=== PATIENT | female | born 1975 | race American Indian/Alaskan Native ===

== ENCOUNTER 2020-07-06 23:59 | Emergency (ER) | payer OTHER ==
[2020-07-07] MEDS ORDERED: IBUPROFEN 800 MG TAB PO ONE (00:16)
--- NOTE | 2020-07-07 01:54 | Emergency Department Report ---
ED Head Trauma HPI - General Chief complaint: Fall Stated complaint: FALL;HEADACHE Time Seen by Provider: 07/07/20 00:10 Source: patient, EMS Mode of arrival: Stretcher Limitations: No Limitations - History of Present Illness Initial comments: Chief complaint: Headache head trauma loss of consciousness tailbone pain HPI: This is a 45-year-old female with history of hypertension and migraine headache who had a ground-level fall after slipping on wet floor. She recalls the floor being wet while washing dishes. She struck her head on the kitchen counter. She awakened on the floor. She may have a loss of consciousness. She has posterior head pain. She also has pain in her tailbone. Family member witnessed her to be dazed but awake. She was transferred to the emergency department by EMS. She has mild to moderate posterior head pain. She denies neck pain. She denies back pain. She does have mild pain in her tailbone. Patient does recall the fall. MD Complaint: head injury, head pain, fall -: Sudden, This evening Mechanism of Injury: mechanical fall Location: occipital Loss of Consciousness: unsure Previous Trauma to this Area: No Place: home Severity: moderate Consistency: constant Other Injuries: other (Tailbone pain) Associated Symptoms: denies other symptoms - Related Data Allergies/Adverse reactions: Allergies Allergy/AdvReac Type Severity Reaction Status Date / Time Penicillins Allergy Intermediate Rash Verified 07/07/20 00:18 ED Review of Systems ROS: Stated complaint: FALL;HEADACHE Other details as noted in HPI Comment: All other systems reviewed and negative Constitutional: denies: fever Respiratory: denies: cough, shortness of breath Cardiovascular: denies: chest pain Gastrointestinal: denies: abdominal pain, nausea, vomiting Musculoskeletal: back pain Neurological: headache ED Past Medical Hx - Past Medical History Previous Medical History?: Yes Hx Hypertension: Yes Additional medical history: migraines - Surgical History Additional Surgical History: Right ring and little finger surgery - Social History Smoking Status: Never Smoker Substance Use Type: None ED Physical Exam - General Limitations: No Limitations General appearance: alert, in no apparent distress - Head Head exam: Present: atraumatic, normocephalic - Eye Eye exam: Present: normal appearance - ENT ENT exam: Present: mucous membranes moist - Neck Neck exam: Present: normal inspection, full ROM. Absent: tenderness, meningismus - Respiratory Respiratory exam: Present: normal lung sounds bilaterally. Absent: respiratory distress, wheezes, rales, rhonchi - Cardiovascular Cardiovascular Exam: Present: regular rate, normal rhythm, normal heart sounds. Absent: systolic murmur, diastolic murmur, rubs, gallop - GI/Abdominal GI/Abdominal exam: Present: soft, normal bowel sounds. Absent: distended, tenderness, guarding, rebound - Extremities Exam Extremities exam: Present: normal inspection - Back Exam Back exam: Present: normal inspection, full ROM. Absent: tenderness, CVA tenderness (R), CVA tenderness (L), muscle spasm, paraspinal tenderness, vertebral tenderness, rash noted - Neurological Exam Neurological exam: Present: alert, oriented X3 - Psychiatric Psychiatric exam: Present: normal affect, normal mood - Skin Skin exam: Present: warm, dry, intact, normal color. Absent: rash ED Course Vital Signs 07/07/20 07/07/20 07/07/20 00:06 00:13 01:40 Temperature 98.2 F Pulse Rate 83 73 Respiratory 20 18 18 Rate Blood Pressure 145/86 Blood Pressure 123/83 [Left] O2 Sat by Pulse 100 98 Oximetry - Radiology Data Radiology results: report reviewed Findings Reporting MD: Marco Moran Dictation Time: July 07, 2020 00:56 Police Cadet: Not available Assistant Mechanic Date: CT head/brain wo con INDICATION: headache loc. TECHNIQUE: All CT scans at this location are performed using CT dose reduction for ALARA by means of automated exposure control. COMPARISON: None available. FINDINGS: Imaged paranasal sinuses are clear. Left mastoids are clear, but there is diffuse sclerosis of the right mastoid sinuses. Ventricles are symmetrical and normal in size. No mass, hemorrhage or other acute abnormality. IMPRESSION: 1. No acute abnormalities. - Medical Decision Making 1. Headache after trauma, possible LOC, CT head indicated due to mechanism loss of consciousness. CT head ruled out intracranial hemorrhage and skull fracture. Patient given concussion precautions. Recommended ibuprofen as needed for headache. 2. Tailbone pain: No tenderness upon palpation. Low suspicion for fracture. Patient given education and supportive care instructions. Critical care attestation.: If time is entered above; I have spent that time in minutes in the direct care of this critically ill patient, excluding procedure time. ED Disposition Clinical Impression: Head injury, Concussion, Coccygeal contusion Disposition: DC-01 TO HOME OR SELFCARE Is pt being admited?: No Does the pt Need Aspirin: No Instructions: Concussion, Adult Forms: Work/School Release Form(ED)
--- NOTE | 2020-07-07 02:01 | Cat Scan Report ---
CT head/brain wo con INDICATION: headache loc. TECHNIQUE: All CT scans at this location are performed using CT dose reduction for ALARA by means of automated e xposure control. COMPARISON: None available. FINDINGS: Imaged paranasal sinuses are clear. Left mastoids are clear, but there is diffuse sclerosis of the ri ght mastoid sinuses. Ventricles are symmetrical and normal in size. No mass, hemorrhage or other acute abnormality. IMPRESSION: 1. No acute abnormalities. Signer Name: Marco Moran MD Signed: 07/07/2020 1:56 AM Workstation Name: [id number]
[2020-07-07 02:42] VITALS: BP 136/87
== END 2020-07-07 02:41 | disposition home or self-care (01) ==
LOC: ED 23:59
DX: S06.0X9A Concussion with loss of consciousness of unspecified duration, initial encounter (principal); S30.0XXA Contusion of lower back and pelvis, initial encounter; I10 Essential (primary) hypertension; Z88.0 Allergy status to penicillin; W18.30XA Fall on same level, unspecified, initial encounter; Y93.89 Activity, other specified; Y92.89 Other specified places as the place of occurrence of the external cause; Y99.8 Other external cause status
CPT/HCPCS: 70450

== ENCOUNTER 2021-07-25 16:37 | Emergency (ER) | payer OTHER ==
--- NOTE | 2021-07-25 23:15 | Emergency Department Report ---
ED Upper Extremity Inj HPI - General Chief Complaint: Extremity Injury, Upper Stated Complaint: HAND INJURY Time Seen by Provider: 07/25/21 22:45 Source: patient Mode of arrival: Ambulatory Limitations: No Limitations - History of Present Illness Initial Comments: 46-year-old female was playing a chasing game last night with friends and lost her footing falling down a fence fell on top of her hand in a crushing fashion resulting in pain and swelling to the left hand region. No numbness or tingling MD Complaint: Injury to:: left -: Sudden Other Extremity Injury: Hand: Left Other Injuries: none Handedness: right Place: home Improves With: none Worsens With: movement of extremity Context: fall, direct blow, crush - Related Data Previous Rx's Medication Instructions Recorded Last Taken Type Acetaminophen/Codeine [Tylenol 1 tab PO Q6H PRN #10 tab 07/26/21 Unknown Rx /Codeine # 3 tab] Allergies Allergy/AdvReac Type Severity Reaction Status Date / Time Penicillins Allergy Intermediate Rash Verified 07/07/20 00:18 ED Review of Systems ROS: Stated complaint: HAND INJURY Other details as noted in HPI ED Past Medical Hx - Past Medical History Hx Hypertension: Yes Additional medical history: migraines - Surgical History Additional Surgical History: Right ring and little finger surgery - Social History Smoking Status: Never Smoker Substance Use Type: None - Medications Home Medications: Home Medications Medication Instructions Recorded Confirmed Last Taken Type Acetaminophen/Codeine [Tylenol 1 tab PO Q6H PRN #10 tab 07/26/21 Unknown Rx /Codeine # 3 tab] ED Physical Exam - General Limitations: No Limitations ED Course Vital Signs 07/25/21 18:04 Temperature 98.4 F Pulse Rate 49 L Respiratory 20 Rate Blood Pressure 160/99 [Right] O2 Sat by Pulse 100 Oximetry - Orthopedic Splinting/Casting Injury #1 Side: left Upper Extremity Injury Location: hand Upper Extremity Immobilizer: volar spint ED Medical Decision Making - Radiology Data Radiology results: report reviewed [facility] [address] [place] [address] XRay Report Signed Patient: ZABRINA CAMARENA MR#: [id number] : 1975 Acct:[id number] Age/Sex: 46 / F ADM Date: 07/25/21 Loc: ED Attending Dr: Ordering Physician: LILLIE HOWARD Date of Service: 07/25/21 Procedure(s): XR hand 3+V LT Accession Number(s): [id number] cc: LILLIE HOWARD Fluoro Time In Minutes: LEFT HAND 3 VIEW(S) INDICATION / CLINICAL INFORMATION: crush injury COMPARISON: None available. FINDINGS: BONES / JOINT(S): Minimally comminuted fracture of the distal ring finger metacarpal is present with palmar angulation of the metacarpal head and minimal widening of the MCP joint likely in part projectional. No significant arthritis. SOFT TISSUES: Moderate soft tissue swelling along the extensor surface of the hand. ADDITIONAL FINDINGS: None. IMPRESSION: 1. Fracture involving the distal ring finger metacarpal with palmar angulation of the metacarpal head and moderate contusion along the extensor surface of the left hand. Signer Name: Evangelista Cr II, MD Signed: 07/25/2021 11:11 PM Workstation Name: [id number] Transcribed By: PANCHITO Dictated By: EVANGELISTA CR II, MD Electronically Authenticated By: EVANGELISTA CR II, MD Signed Date/Time: 07/25/212310 DD/ 09 TD/TT: - Medical Decision Making 38-year-old Haitian female [facility] emerged department status post mechanical fall onto left hand resulting in a metacarpal fracture. She was placed in a /volar splint with plans for follow-up with orthopedics she is neurovascularly intact and right-handed. Critical care attestation.: If time is entered above; I have spent that time in minutes in the direct care of this critically ill patient, excluding procedure time. ED Disposition Clinical Impression: Closed fracture of 4th metacarpal Disposition: 01 HOME / SELF CARE / HOMELESS Is pt being admited?: No Does the pt Need Aspirin: No Condition: Stable Instructions: Cast or Splint Care, Adult, [id number], Metacarpal Fracture Prescriptions: Acetaminophen/Codeine [Tylenol /Codeine # 3 tab] 1 tab PO Q6H PRN #10 tab PRN Reason: hand pain Referrals: POLO LOMBARDO MD [Primary Care Provider] - 3-5 Days
[2021-07-26 01:10] VITALS: BP 156/94
== END 2021-07-26 01:10 | disposition home or self-care (01) ==
LOC: ED 16:37
DX: S62.305A Unspecified fracture of fourth metacarpal bone, left hand, initial encounter for closed fracture (principal); X58.XXXA Exposure to other specified factors, initial encounter; Y93.89 Activity, other specified; Y92.89 Other specified places as the place of occurrence of the external cause; Y99.8 Other external cause status; Z88.0 Allergy status to penicillin
CPT/HCPCS: 99283

== ENCOUNTER 2021-08-17 15:28 | Outpatient (CLI) | payer OTHER ==
--- NOTE | 2021-08-17 16:14 | XRay Report ---
LEFT HAND 2 VIEWS INDICATION: M25.532 pain in left wrist. COMPARISON: 07/25/2021. IMPRESSION: A splint has been applied. A mildly comminuted fractures at the fourth metacarpal neck is unchanged in position and alignment since 07/25/2021. No significant calcified callus is detected. The remaining bony structures are intact. No joint pathology. Signer Name: Dawson Landry Jr, MD Signed: 08/17/2021 4:09 PM Workstation Name: [id number]
== END 2021-08-17 15:29 | disposition home or self-care (01) ==
LOC: XRAY 15:28
PROVIDERS: ATTEND Orthopaedic Surgery
DX: S62.335A Displaced fracture of neck of fourth metacarpal bone, left hand, initial encounter for closed fracture (principal); X58.XXXA Exposure to other specified factors, initial encounter; Y93.89 Activity, other specified; Y92.89 Other specified places as the place of occurrence of the external cause; Y99.8 Other external cause status

== ENCOUNTER 2021-08-31 16:50 | Outpatient (CLI) | payer OTHER ==
--- NOTE | 2021-09-01 07:23 | XRay Report ---
LEFT HAND 2 VIEWS 1741 INDICATION: M25.532 pain in left wrist COMPARISON: 08/17/2021 FINDINGS: Complex fracture of the distal fourth metacarpal is again seen with mild callus formation n oted. No change in positioning is obvious. No other changes are seen. Signer Name: Domingo Estrada MD Signed: 09/01/2021 7:19 AM Workstation Name: [id number]
== END 2021-08-31 16:51 | disposition home or self-care (01) ==
LOC: XRAY 16:50
PROVIDERS: ATTEND Orthopaedic Surgery
DX: S62.395A Other fracture of fourth metacarpal bone, left hand, initial encounter for closed fracture (principal); M25.741 Osteophyte, right hand; X58.XXXA Exposure to other specified factors, initial encounter; Y93.89 Activity, other specified; Y92.89 Other specified places as the place of occurrence of the external cause; Y99.8 Other external cause status

== ENCOUNTER 2021-10-10 15:12 | Emergency (ER) | payer OTHER ==
[2021-10-10 15:33] VITALS: BP 139/81
--- NOTE | 2021-10-10 16:15 | XRay Report ---
RIGHT HAND, 3 VIEWS INDICATION / CLINICAL INFORMATION: right hand and right index finger deformity. COMPARISON: None available. FINDINGS: There is a mildly displaced oblique fracture involving the proximal phalanx of the ring finger. Fract ure does not appear to extend intra-articularly but does extend throughout the diaphysis of the proxi mal phalanx. No additional fractures are noted within the hand. IMPRESSION: Mildly displaced nonintra-articular oblique fracture throughout the proximal phalanx of t he ring finger. Signer Name: Aleida Cobb MD Signed: 10/10/2021 4:11 PM Workstation Name: [id number]
[2021-10-10] MEDS ORDERED: KETOROLAC 10 MG TAB PO ONE (18:08)
[2021-10-10] MEDS ORDERED: oxyCODONE /ACETAMINOPHEN 5-325MG TAB PO ONE (18:08)
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
== END 2021-10-10 19:14 | disposition home or self-care (01) ==
LOC: ED 15:12
DX: S62.604A Fracture of unspecified phalanx of right ring finger, initial encounter for closed fracture (principal); I10 Essential (primary) hypertension; Z88.0 Allergy status to penicillin; X58.XXXA Exposure to other specified factors, initial encounter; Y93.89 Activity, other specified; Y92.89 Other specified places as the place of occurrence of the external cause; Y99.8 Other external cause status
CPT/HCPCS: 99283

== ENCOUNTER 2021-11-19 09:02 | Day surgery (SDC) | payer OTHER ==
[~2021-11-19 09:02] MED LIST: ceFAZolin/STERILE WATER 2 GM/20 ML SYRINGE IV SCH
[2021-11-19] MEDS ORDERED: KETAMINE/STERILE WATER 50 MG/ML SYRINGE ONE (09:16)
[2021-11-19] MEDS ORDERED: LIDOCAINE MPF (2%) 20 MG/1 ML VIAL 5 ML ONE (09:16)
[2021-11-19] MEDS ORDERED: propofoL 200 MG/20 ML VIAL IV ONE ×2 (09:16→09:29)
[2021-11-19] MEDS ORDERED: LACTATED RINGERS 1,000 ML ONE (09:20)
--- NOTE | 2021-11-19 09:24 | Anesthesia Day of Surgery ---
Anesthesia Day of Surgery - Day of Surgery Patient Examined: Yes Patient H&P Reviewed: Yes Patient is NPO: Yes
--- NOTE | 2021-11-19 09:24 | Anesthesia Consultation ---
Anesthesia Consult and Med Hx Date of service: 11/19/21 - Airway Anesthetic Teeth Evaluation: Good, Chipped ROM Head & Neck: Adequate Mental/Hyoid Distance: Adequate Mallampati Class: Class I Intubation Access Assessment: Probably Good - Pulmonary Exam CTA: Yes - Cardiac Exam Cardiac Exam: RRR - Pre-Operative Health Status ASA Pre-Surgery Classification: ASA1 Proposed Anesthetic Plan: General - Pulmonary Hx Smoking: No Hx Respiratory Symptoms: No Hx Sleep Apnea: (SUSANA PRE SCREEN NEGATIVE) - Cardiovascular System Hx Hypertension: Yes (OCC. NO MEDS PCP-WATCHING) Hx Cardia Arrhythmia: No - Central Nervous System Hx Neuromuscular Disorder: Yes (R ring finger fracture) Hx Psychiatric Problems: No - Gastrointestinal Hx Gastroesophageal Reflux Disease: No - Endocrine Hx Renal Disease: No Hx Liver Disease: No Hx Thyroid Disease: No - Hematic Hx Anemia: Yes - Other Systems Hx Alcohol Use: Yes (OCC.) Hx Substance Use: Yes (MARIJUANA) Hx Cancer: No - Additional Comments Anesthesia Medical History Comments: No GAC. No FHAC.
[2021-11-19] MEDS ORDERED: LACTATED RINGERS 1,000 ML IV SCH (09:25)
[2021-11-19] MEDS ORDERED: dexAMETHasone 20 MG/5 ML VIAL ONE (09:28)
[2021-11-19] MEDS ORDERED: ONDANSETRON 4 MG/2 ML INJ ONE (09:28)
[2021-11-19] MEDS ORDERED: HYDROmorphone 0.5 MG/0.5 ML INJ ONE ×2 (09:29→12:11)
[2021-11-19] MEDS ORDERED: MIDAZOLAM 2 MG/2 ML INJ ONE (09:46)
[2021-11-19] MEDS ORDERED: FAMOTIDINE 20 MG/2 ML INJ IV ONE (09:46)
[2021-11-19] MEDS ORDERED: VANCOMYCIN/NS 1 GM/250 ML 1 GM/250 ML BAG IV NR (10:00)
[2021-11-19] MEDS ORDERED: HYDROmorphone 1 MG/1 ML INJ ONE (10:20)
[2021-11-19] MEDS ORDERED: SODIUM CHLORIDE 0.9% IRR 1,500 ML BOTTLE IR ONE (10:40)
[2021-11-19] MEDS ORDERED: fentaNYL 100 MCG/2 ML INJ ONE (10:50)
--- NOTE | 2021-11-19 12:09 | XRay Report ---
Right fingers fluoroscopy INDICATION: Right fourth finger fracture IMPRESSION: Satisfactory ORIF of the fourth finger fracture. Fluoroscopy time: 0.1 minutes. Fluoroscopic images: 2. Signer Name: Wiley Adamson MD Signed: 11/19/2021 12:05 PM Workstation Name: [id number]
[2021-11-19] MEDS ORDERED: ONDANSETRON 4 MG/2 ML INJ IV PRN (12:13)
[2021-11-19] MEDS: HYDROmorphone 0.5 MG/0.5 ML INJ IV PRN ×2 (12:34→12:48)
[2021-11-19] MEDS ORDERED: HYDROcodone/ACETAMINOPHEN 5-325 MG TAB PO PRN (13:00)
[2021-11-19 13:20] VITALS: BP 138/86
--- NOTE | 2021-11-19 16:51 | Procedure Note ---
Date of procedure: 11/19/21 Pre-op diagnosis: 6-wk old right proximal phalanx fracture 4th finger Post-op diagnosis: same Procedure: Open reduction internal fixation right fourth finger proximal phalanx Procedure Patient was brought to the OR placed in the OR table in supine position following induction intubation anesthesia the patient's right upper extremity was prepped and draped in usual sterile manner a timeout procedure was done to identify the patient and the correct operative site. Next the arm was exsanguinated followed by inflation of the pneumatic tourniquet to 250 mmHg a bayonet type incision was made over the dorsal surface of the fourth finger is taken down sharply through skin and subcu the extensor tendon was seen identified and using a longitudinal incision this tendon was split self- retaining retractors placed deep within the wound patient was noted to have callus formation around the fracture site using combination of #15 blade curette and Jurors the fracture site was debrided of early callus formation next the fracture fragments were reduced into a more anatomic position and was held via bone clamps next to temporary K wire fixation fixation were applied along the shaft this was then followed by placement of our 1.7 T-shaped locked plate to t he dorsal surface of the proximal phalanx the plate was secured with screws of various lengths AP and lateral x-rays were obtained showing good anatomic reduction at the fracture site and placement of the screws on examination patient was noted to have a slight rotation distally however patient I was able to flex and extend the finger well following this the wound was then copiously irrigated and the skin incision was closed in a standard routine fashion postop dressings were applied as well as a ulnar gutter type splint patient tolerated procedure there were no complications she was sent to postanesthesia recovery in a stable condition Anesthesia: GETA Surgeon: MANUEL CARLISLE (Bhavik Cheung, 1st assist) Estimated blood loss: minimal Pathology: none Condition: stable Disposition: PACU
--- NOTE | 2021-11-19 18:50 | Post Anesthesia Evaluation ---
- Post Anesthesia Evaluation Patient Participated: Yes Airway Patent: Yes Stable Respiratory Function: Yes Nausea/Vomiting: No Temp > 96.8F: Yes Pain Manageable: Yes Adequeate Hydration: Yes Anesthesia Complications: No Block Receding Appropriately: Not Applicable Patient on Ventilator: No
== END 2021-11-19 14:10 | disposition home or self-care (01) ==
LOC: OR 09:02
PROVIDERS: ATTEND Orthopaedic Surgery
DX: S62.614A Displaced fracture of proximal phalanx of right ring finger, initial encounter for closed fracture (principal); G43.909 Migraine, unspecified, not intractable, without status migrainosus; G47.33 Obstructive sleep apnea (adult) (pediatric); I10 Essential (primary) hypertension; Z88.0 Allergy status to penicillin; Z79.899 Other long term (current) drug therapy; Z87.440 Personal history of urinary (tract) infections; Z72.89 Other problems related to lifestyle; Z98.890 Other specified postprocedural states; X58.XXXA Exposure to other specified factors, initial encounter; Y93.89 Activity, other specified; Y92.89 Other specified places as the place of occurrence of the external cause; Y99.8 Other external cause status
CPT/HCPCS: 26735; 73140; C1713; J1100; J1170; J2250; J2405; J2704; J3010; J3370; J3490; J7120